=== PATIENT | male | born 1980 | race Caucasian/White ===

== ENCOUNTER 2019-07-07 18:20 | Emergency (ER) | payer BC ==
[~2019-07-07] VITALS: Ht 185.4 cm; Wt 129.5 kg
[2019-07-07 18:42] VITALS: TEMP 97.6
[2019-07-07 21:45] VITALS: BP 138/111; PULSE 94
== END 2019-07-07 21:45 | disposition home or self-care (01) ==
LOC: COL.ER 18:20
DX: M79.662 Pain in left lower leg (principal)

== ENCOUNTER → 2019-07-20 | Outpatient (CLI) | payer BC | LOC: COL.RAD 12:18 | DX: N20.0 Calculus of kidney (principal); R31.0 Gross hematuria | CPT/HCPCS: Q9967 ==

== ENCOUNTER 2022-03-10 13:11 | Emergency (ER) | payer SELFPAY ==
[~2022-03-10] VITALS: Ht 185.4 cm; Wt 130.5 kg
[2022-03-10 13:20] VITALS: TEMP 97.9
[2022-03-10 13:51] LABS: COLLECTION METHOD CLEAN CATCH
[2022-03-10 13:51] LABS: BASO # 0.1 K/mm3 (0.0-0.2); BASO % 0.5 % (0.0-2.0); EOS # 0.3 K/mm3 (0.0-0.7); EOS % 3.6 % (0.0-4.0); GRAN # 5.7 K/mm3 (1.4-6.5); GRAN % 61.6 % (42.2-75.2); HEMATOCRIT 45.4 % (42.0-52.0); HEMOGLOBIN 15.7 g/dl (13.5-18.0); LYMPH # 2.5 K/mm3 (1.2-3.4); LYMPH % 27.5 % (20.0-51.0); MEAN CELL VOLUME 90 fl (80.0-100.0); MEAN CORPUSCULAR HEMOGLOBIN 31 pg (27-31); MEAN CORPUSCULAR HGB CONC 35 g/dl (33.0-37.0); MONO # 0.6 K/mm3 (0.1-0.6); MONO % 6.5 % (1.7-9.3); PLATELET COUNT 268 K/mm3 (130-400); RED BLOOD COUNT 5.04 M/mm3 (4.20-5.60); REDCELL DISTRIBUTION WIDTH-CV 12.9 % (11.5-14.5)
[2022-03-10 14:02] LABS: MUCOUS Present (NOT PRESENT); PH 5 (5-8); SQUAMOUS EPITHELIAL 0-2 /hpf (0-10); URINE APPEARANCE Hazy (CLEAR/HAZY); URINE BACTERIA Occasional /hpf (NONE SEEN); URINE BILIRUBIN Negative (NEGATIVE); URINE BLOOD 2+ (NEGATIVE); URINE COLOR Yellow (YELLOW); URINE GLUCOSE Negative (NEGATIVE); URINE KETONE Trace (NEGATIVE); URINE LEUKOCYTE ESTERASE 1+ (NEGATIVE); URINE NITRATE Negative (NEGATIVE); URINE PROTEIN(semi-quant) 1+ (NEGATIVE); URINE RBC >50 /hpf (0-2)
[2022-03-10 14:09] LABS: BILIRUBIN,TOTAL 0.8 mg/dL (0.2-1.2); CALCIUM 9.3 mg/dL (8.4-10.2); CREATININE, serum 1.09 mg/dL (0.72-1.25); TOTAL PROTEIN 7.6 gm/dL (6.2-8.1)
[2022-03-10 15:47] VITALS: BP 152/91; PULSE 82
== END 2022-03-10 15:48 | disposition home or self-care (01) ==
LOC: COL.ER 13:11
PROVIDERS: Nurse Practitioner Primary Care
DX: N39.0 Urinary tract infection, site not specified (principal); N20.0 Calculus of kidney; F17.210 Nicotine dependence, cigarettes, uncomplicated; Z28.310 Unvaccinated for COVID-19; Z88.0 Allergy status to penicillin
CPT/HCPCS: J1885; J7030; Q9967

== ENCOUNTER 2022-04-03 11:36 | Day surgery (SDC) | payer SELFPAY ==
[~2022-04-03] VITALS: Ht 185.4 cm; Wt 127.1 kg
[2022-04-03 13:58] VITALS: BP 131/82; PULSE 88; TEMP 98.3
[2022-04-03] MEDS ORDERED: NORCO 325 MG-51 TAB PO (14:25)
[2022-04-03 15:25] VITALS: BP 146/87; PULSE 75; TEMP 97.7
--- NOTE | 2022-04-03 15:25 | NUR ---
PT TO [facility] PER CART FROM PACU. RECEIVED REPORT. VS OBTAINED. TOLERATING WATER AND MUFFIN. DENIES ANY NEEDS AT THIS TIME.
--- NOTE | 2022-04-03 15:30 | NUR ---
PT TO RESTROOM AND VOIDED WITHOUT DIFFICULTY.
[2022-04-03 15:40] VITALS: BP 132/86; PULSE 81
--- NOTE | 2022-04-03 15:40 | NUR ---
PT CONTINUES TO DENY ANY NEEDS.
[2022-04-03 15:42] VITALS: TEMP 98.5
[2022-04-03 15:55] VITALS: BP 133/82; PULSE 79
--- NOTE | 2022-04-03 15:55 | NUR ---
PT DENIES ANY NEEDS AT THIS TIME. PT READY FOR DISCHARGE.
--- NOTE | 2022-04-03 16:00 | NUR ---
DISCHARGE EDUCATION COMPLETED WITH PT AND HIS DAD. VERBALIZED UNDERSTANDING OF HOME AND FOLLOW UP CARE. ALL QUESTIONS ANSWERD. DISCHARGE PAPERWORK GIVEN TO PT.
--- NOTE | 2022-04-03 16:05 | NUR ---
IV DC'D. PT TOLERATED WELL
--- NOTE | 2022-04-03 16:15 | NUR ---
PT OFF UNIT PER WHEELCHAIR. PT DISCHARGE TO HOME WITH FATHER PER PERSONAL VEHICLE.
[2022-04-04] MEDS ORDERED: PYRIDIUM 100MG100 MG PO (13:19)
== END 2022-04-03 16:15 | disposition home or self-care (01) ==
LOC: SDCO 11:36
DX: N20.1 Calculus of ureter (principal); F17.210 Nicotine dependence, cigarettes, uncomplicated
CPT/HCPCS: J1100; J2405; J2704; J7120

== ENCOUNTER 2022-04-04 00:44 | Day surgery (SDC) | payer SELFPAY ==
[2022-04-04] VITALS (8 sets, daily range): BP systolic 136–158; BP diastolic 77–98; PULSE 59–89; TEMP 98–98.2
[~2022-04-04] VITALS: Ht 185.4 cm; Wt 124.0 kg
[~2022-04-04 00:44] MED LIST: NORCO 325 MG-51 TAB PO
--- NOTE | 2022-04-04 02:19 | NUR ---
PATIENT UP TO ROOM 348. ALERT AND ORIENTED. AMBULATED TO BED WITH STANDBY ASSIST. FATHER AT BEDSIDE. C/O MODERATE PAIN 05/03. PRN DILAUDID GIVEN. IVF STARTED TO R WRIST IV. MED RX COMPLETED, ADMIN ASSESSMENTS COMPLETED. DISCUSSED VISITING HOURS WITH PATIENT AND FAMILY AND PATIENT WAS ANGRY THAT HIS FATHER COULD NOT STAY WITH HIM. DISCUSSED WITH CHARGE NURSE AND AMBULANCE OFFICER WHO AGREED THAT HIS FATHER COULD NOT STAY.
--- NOTE | 2022-04-04 10:49 | NUR ---
Initial visit; Patient using phone but thanked Soapstoner for looking in on him and offering God's blessings.
--- NOTE | 2022-04-04 11:15 | NUR ---
PATIENT REQUESTING SOMETHING FOR PAIN, GIVEN. OR STAFF NOW AT BEDSIDE TO TAKE PATIENT DOWNT OR EARLIER THAN EXPECTED. NO ORDERS FOR CONSENT, BLANK CONSENT ON CHART FOR SURGEON. IV FLUIDS INFUSING NOW VIA GRAVITY. PATIENTS DAD WANTS TO WAIT IN ROOM. PATIENT GOING DOWN TO OR VIA BED AND OFF FLOOR.
[2022-04-04] MEDS ORDERED: PYRIDIUM 100MG100 MG PO (13:19)
--- NOTE | 2022-04-04 13:50 | NUR ---
PATIENT BACK IN ROOM POST OP. A&O. VSS. DENIES PAIN. UPON ENTERING ROOM PATIENT AMBULATED TO BATHROOM AND WAS ABLE TO VOID. HEAD TO TOE ASSESSMENT COMPLETE. FAMILY AT BEDSIDE
--- NOTE | 2022-04-04 16:15 | NUR ---
PATIENT DISCHARGING HOME VIA AMBULATORY TO PERSONAL VEHICLE WITH DAD. GAVE DISCHARGE INSTRUCTIONS, E-SCRIPT SENT, AND DISCUSSED F/U APT. ANSWERED QUESTIONS/CONCERNS. DC'D RIGHT WRIST IV AND COVERED SITE WITH GAUZE & COBAN. PATIENT IS DRESSED, PACKED AND DISCHARGED.
--- NOTE | 2022-04-04 16:20 | NUR ---
cemetery worker met with patient to complete intake and discuss discharge plan. Patient's father Gabino Yeboah present at bedside. Patient states that he lives at home with his mother and 14 yr old son. He is fully independent with his ADL's and does not utilize any DME or home oxygen needs. PCP is Dr. Diaz and he utilizes [facility] for medications. Patient states that at time he has trouble affording his medications depending on how expensive they are. Patient does not have a DPOA-HC established and is not interested in one. He is not and his son is his only child. Patient is planning on being discharged later today with no concerns. Discharge plan: Home
== END 2022-04-04 16:15 | disposition home or self-care (01) ==
LOC: MEDICAL 00:44 → SDCO 00:44 → SURG 00:44 → SDCO 16:15 → SURG 16:15
DX: N20.1 Calculus of ureter (principal); F17.210 Nicotine dependence, cigarettes, uncomplicated
CPT/HCPCS: OP; C1769; C2617; G0378; J0690; J1100; J1170; J1885; J2405; J2704; J3010; J7030; Q9967

== ENCOUNTER 2022-12-30 00:16 | Emergency (ER) | payer MEDICAID ==
[~2022-12-30] VITALS: Ht 185.4 cm; Wt 127.3 kg
[~2022-12-30 00:16] MED LIST changes: +PYRIDIUM 100MG100 MG PO
[2022-12-30 00:21] VITALS: TEMP 98.1
[2022-12-30 00:58] LABS: BASO # 0.1 K/mm3 (0.0-0.2); EOS # 0.4 K/mm3 (0.0-0.7); GRAN # 6.4 K/mm3 (1.4-6.5); GRAN % 60.9 % (42.2-75.2); HEMOGLOBIN 15.5 g/dl (13.5-18.0); LYMPH # 2.3 K/mm3 (1.2-3.4); LYMPH % 22.1 % (20.0-51.0); MEAN CELL VOLUME 89 fl (80.0-100.0); MEAN CORPUSCULAR HEMOGLOBIN 31 pg (27-31); MEAN CORPUSCULAR HGB CONC 34 g/dl (33.0-37.0); MEAN PLATELET VOLUME 10.6 fl (7.4-10.4); MONO # 1.2 K/mm3 (0.1-0.6); MONO % 11.5 % (1.7-9.3); PLATELET COUNT 270 K/mm3 (130-400); RED BLOOD COUNT 5.05 M/mm3 (4.20-5.60)
[2022-12-30 01:12] LABS: COLLECTION METHOD CLEAN CATCH
[2022-12-30 01:15] LABS: ALBUMIN 3.7 gm/dL (3.5-5.0); BILIRUBIN,TOTAL 0.3 mg/dL (0.2-1.2); C-REACTIVE PROTEIN 0.44 mg/dL (0.00-0.50); CALCIUM 9.2 mg/dL (8.4-10.2); CREATININE, serum 1.11 mg/dL (0.72-1.25); POTASSIUM 4.2 mmol/L (3.5-4.5); TOTAL PROTEIN 6.9 gm/dL (6.2-8.1)
[2022-12-30 01:31] LABS: MUCOUS Present (NOT PRESENT); SQUAMOUS EPITHELIAL 0-2 /hpf (0-10); URINE BACTERIA None Seen /hpf (NONE SEEN); URINE RBC 0-2 /hpf (0-2)
[2022-12-30 01:32] LABS: URINE APPEARANCE Clear (CLEAR/HAZY); URINE BLOOD Negative (NEGATIVE); URINE COLOR Yellow (YELLOW); URINE GLUCOSE Negative (NEGATIVE); URINE KETONE Negative (NEGATIVE); URINE NITRATE Negative (NEGATIVE); URINE PROTEIN(semi-quant) Negative (NEGATIVE); URINE UROBILINOGEN 0.2 E.U/dL (0.2-1.0)
[2022-12-30] MEDS ORDERED: FLEXERIL 1010 MG/TAB PO (02:56)
[2022-12-30 03:06] VITALS: BP 117/81; PULSE 80
== END 2022-12-30 03:07 | disposition home or self-care (01) ==
LOC: COL.ER 00:16
PROVIDERS: Nurse Practitioner
DX: R10.9 Unspecified abdominal pain (principal); F17.290 Nicotine dependence, other tobacco product, uncomplicated; Z87.442 Personal history of urinary calculi; Z28.310 Unvaccinated for COVID-19
CPT/HCPCS: J1170; J1885; J2405; J7030; Q9967

== ENCOUNTER 2023-01-19 09:39 | Day surgery (SDC) | payer MEDICAID ==
[~2023-01-19] VITALS: Ht 185.4 cm; Wt 135.4 kg
[~2023-01-19 09:39] MED LIST changes: +FLEXERIL 1010 MG/TAB PO
[2023-01-19 11:49] VITALS: BP 147/98; PULSE 89; TEMP 98.5
[2023-01-19] MEDS ORDERED: PYRIDIUM 100MG100 MG PO (14:19)
[2023-01-19] MEDS ORDERED: NORCO 325 MG-51 TAB PO (14:19)
[2023-01-19 15:00] VITALS: BP 143/101; PULSE 80; TEMP 96.9
[2023-01-19 15:15] VITALS: BP 150/98; PULSE 81
[2023-01-19 15:30] VITALS: BP 151/100; PULSE 72
[2023-01-19 15:45] VITALS: BP 151/97; PULSE 96
[2023-01-19 16:15] VITALS: BP 156/96; PULSE 80
--- NOTE | 2023-01-19 16:55 | NUR ---
1500: PATIENT TO [place] [facility] FROM PACU PER CART. REPORT RECEIVED. VS OBTAINED. PATIENT DENIES PAIN AND NAUSEA AT THIS TIME. SKIN WARM AND DRY. BREATHING EVEN AND UNLABORED. CALL LIGHT IN REACH. AMBULATED TO BATHROOM. PATIENT STATES HIS URINE IS PINK. 1507: PATIENT GIVEN DAVID CRACKERS AND WATER AT THIS TIME. RATES PAIN 3/10 1515: PATIENT TOLERATED DAVID CRACKERS AND WATER. RATING PAIN 5/10. DENIES NAUSEA. AMBULATED TO BATHROOM AT THIS TIME. PATIENT HAS STAEDY GATE AND URINNATING WITHOUT DIFFICULTIES. URINE IS PINK TINGED WITH FLECKS. CALL LIGHT IN REACH. 1545: PATIENT RESTING IN BED AT THIS TIME. GIVEN MORE ICE WATER AT THIS TIME. 1550: PATIENT GIVEN PAIN PILL AND LEVSIN RATING PAIN 10/10. 1615: PATIENT RATING PAIN 8/10 AT THIS TIME. 1630: PATIENT AMBULATED TO BATHROOM AT THIS TIME. WALKING WITH STEADY GAIT, VOIDING WITHOUT DIFFICULTIES. PATIENT HANDED OFF TO MAE LOMELI RN
--- NOTE | 2023-01-19 17:05 | NUR ---
1640 RETURNS FROM BATHROOM. ADMITS TO VOIDING WITHOUT DIFFICULTY. REPORTS URINE IS LIGHT PINK. EXPRESSES INCREASED COMFORT, DECREASED URINARY URGENCY. LYING ON CART. WARM BLANKET TO ABD. 1645 DISCHARGE INSTRUCTIONS REVIEWED. PATIENT VERBALIZES UNDERSTANDING. COPY PROVIDED IN DISCHARGE FOLDER 1657 UP IN ROOM. DRESSES SELF.
== END 2023-01-19 17:08 | disposition home or self-care (01) ==
LOC: SDCO 09:39
DX: N20.0 Calculus of kidney (principal); F17.210 Nicotine dependence, cigarettes, uncomplicated; F17.290 Nicotine dependence, other tobacco product, uncomplicated
CPT/HCPCS: C1769; C2617; J0690; J1100; J2405; J2704; J3010; J7120; Q9967

== ENCOUNTER 2024-04-17 06:14 | Day surgery (SDC) | payer BC ==
[~2024-04-17] VITALS: Ht 185.4 cm; Wt 138.1 kg
[~2024-04-17 06:14] MED LIST changes: +LR 1,000 ML IV SCH
[2024-04-17] MEDS ORDERED: PROTONIX 40MG T40 MG PO (06:35)
[2024-04-17] MEDS ORDERED: Lidocaine PF 2% (20 MG/ML) 5 ML VIAL ONE (07:41)
[2024-04-17 08:35] VITALS: BP 130/97; PULSE 78
--- NOTE | 2024-04-17 08:45 | NUR ---
0835 PATIENT RETURNS TO [facility] VIA CART. PT AWAKE AND ALERT. RESPIRATIONS UNLABORED. AMBULATED TO RECLINER CHAIR WITH 2:1 SBA. PT DENIES NAUSEA OR ABDOMINAL PAIN. HOOKED UP TO MONITOR AND VS OBTAINED. CALL LIGHT AT SIDE AND FATHER PRESENT. 0840 PATIENT TOLERATING PEPSI AND CHEESE/CRACKERS WITHOUT NAUSEA OR DIFFICULTY SWALLOWING (EGD ONLY). 0845 IN ROOM SPEAKING WITH PATIENT. 0855 D/C INSTRUCTIONS REVIEWED WITH PATIENT. PT VERBALIZED UNDERSTANDING AND A COPY OF INSTRUCTIONS PROVIDED IN D/C FOLDER. 0900 PATIENT DRESSES SELF. 0910 PATIENT DISCHARGED FROM UNIT VIA W/C TO A PERSONAL VEHICLE. PT LEFT HOSPITAL IN STABLE CONDITION.
[2024-04-17 08:50] VITALS: BP 131/98; PULSE 77
[2024-04-17 09:05] VITALS: BP 134/104; PULSE 78
[2024-04-17 12:02] VITALS: BP 134/99; PULSE 81; TEMP 98
--- NOTE | 2024-04-17 12:06 | NUR ---
0630 Patient ambulatory to bay 1 with steady gait, breathing even and unlabored. Pt is alert and oriented. Consents reviewed and signed by the patient. IV established. LR infusion via gravity at KVO. Call light in reach. Warm blanket provided.
== END 2024-04-17 09:10 | disposition home or self-care (01) ==
LOC: SDCO 06:14
DX: K21.00 Gastro-esophageal reflux disease with esophagitis, without bleeding (principal); K29.50 Unspecified chronic gastritis without bleeding; K22.70 Barrett's esophagus without dysplasia; F17.210 Nicotine dependence, cigarettes, uncomplicated; Z79.899 Other long term (current) drug therapy
CPT/HCPCS: J2704; J7120